=== PATIENT | female | born 1950 | race Caucasian/White ===

== ENCOUNTER 2025-08-20 08:38 | Outpatient (CLI) | payer MEDICARE, MEDICAID ==
--- NOTE | 2025-08-20 12:27 | RADIOLOGY REPORT ---
EXAM: MR MRI UPPER EXTREMITY LEFT HISTORY: PAIN IN LEFT SHOULDER COMPARISON: None TECHNIQUE: Multiplanar multisequence noncontrast MR images of the left humerus were performed. FINDINGS: On coronal images small full-thickness tears there is a joint effusion present. A small amount of fluid is present in the subacromial subdeltoid bursa. On transaxial images the subscapularis tendon is intact. Tendon for long head of the biceps within the bicipital groove There is narrowing of the glenohumeral joint with osteophyte formation and subchondral sclerosis There is a degenerative tear involving the upper anterior glenoid labrum. The biceps labral anchor is intact. The intra-articular biceps is intact. On sagittal images the glenohumeral ligaments are intact. There are degenerative changes with spurring of the acromioclavicular joint through the supraspinatus and infraspinatus tendons without retraction. IMPRESSION: 1. Small full-thickness tears of the supraspinatus and infraspinatus tendons with joint effusion 2. Degenerative changes of the glenohumeral joint with degenerative tear in the upper anterior glenoid labrum 3. Degenerative changes in the acromioclavicular joint with spurring
== END 2025-08-20 23:59 | disposition home or self-care (01) ==
LOC: MRI02 08:38
DX: S43.432A Superior glenoid labrum lesion of left shoulder, initial encounter (principal); M75.122 Complete rotator cuff tear or rupture of left shoulder, not specified as traumatic; M19.072 Primary osteoarthritis, left ankle and foot; M25.512 Pain in left shoulder; X58.XXXA Exposure to other specified factors, initial encounter; Y93.89 Activity, other specified; Y92.89 Other specified places as the place of occurrence of the external cause; Y99.8 Other external cause status
CPT/HCPCS: 73221